=== PATIENT | male | born 1985 | race Caucasian/White ===

== ENCOUNTER 2016-10-16 11:59 | Emergency (ER) | payer OTHER ==
[2016-10-16] MEDS ORDERED: TORADOL 60 MG VIAL IM ONE (12:06)
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
[2016-10-16] MEDS ORDERED: TORADOL 60 MG VIAL ONE (12:12)
[2016-10-16 12:14] VITALS: BP 124/85; BMI 21.5
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
== END 2016-10-16 13:13 | disposition short-term general hospital (02) ==
LOC: ER 11:59
DX: R60.9 Edema, unspecified (principal); M79.89 Other specified soft tissue disorders
CPT/HCPCS: 70486; 96372; 99283; J1885